=== PATIENT | female | born 1990 | race Caucasian/White ===

== ENCOUNTER 2021-11-03 09:33 | Emergency (ER) | payer OTHER ==
[~2021-11-03 09:33] MED LIST: COLACE100 MG PO
[2021-11-03] MEDS ORDERED: NAPROSYN500 MG PO (12:21)
[2021-11-03] MEDS ORDERED: CYCLOBENZAPRINE10 MG PO (12:21)
== END 2021-11-03 12:26 | disposition home or self-care (01) ==
LOC: ER1 09:33
DX: S09.90XA Unspecified injury of head, initial encounter (principal); S16.1XXA Strain of muscle, fascia and tendon at neck level, initial encounter; S46.912A Strain of unspecified muscle, fascia and tendon at shoulder and upper arm level, left arm, initial encounter; F17.210 Nicotine dependence, cigarettes, uncomplicated; Z79.899 Other long term (current) drug therapy; Z88.0 Allergy status to penicillin; V89.2XXA Person injured in unspecified motor-vehicle accident, traffic, initial encounter; W22.10XA Striking against or struck by unspecified automobile airbag, initial encounter
CPT/HCPCS: 70450; 71260; 72125; 96374; 99283; J2405; Q9967